=== PATIENT | female | born 1950 | race African-American/Black ===

== ENCOUNTER → 2018-07-21 | Outpatient (CLI) | payer BC ==
--- NOTE | 2018-07-21 13:40 | RAD ---
CT of the head without contrast, 07/21/2018: HISTORY: Dementia, memory loss There is mild cerebral atrophy. There are minimal bilateral deep white matter lucencies compatible with chronic ischemic change. The ventricles are within normal limits in size. There is no shift of the midline structures. There is no evidence of acute intracranial hemorrhage or mass effect. No abnormal extra-axial fluid collection or mass is seen. There is calcific plaquing of the distal internal carotid arteries. IMPRESSION: 1. Chronic findings as described above. 2. No acute intracranial abnormality is detected. PQRS Compliance Statement: One or more of the following individualized dose reduction techniques were utilized for this examination: 1. Automated exposure control 2. Adjustment of the mA and/or kV according to patient size 3. Use of iterative reconstruction technique Electronically signed by: Skyler Siegel MD (07/21/2018 1:36 PM) [facility]
== END | disposition home or self-care (01) ==
LOC: CT 13:07
PROVIDERS: ATTEND Psychiatry & Neurology Neurology
DX: G31.9 Degenerative disease of nervous system, unspecified (principal); R90.82 White matter disease, unspecified
CPT/HCPCS: 70450

== ENCOUNTER → 2018-07-28 | Outpatient (CLI) | payer BC ==
[2018-07-29 03:07] LABS: THYROXINE 8.6 ug/dL (4.5-12.0)
== END | disposition home or self-care (01) ==
LOC: LAB 12:49
PROVIDERS: ATTEND Psychiatry & Neurology Neurology
DX: F03.90 Unspecified dementia, unspecified severity, without behavioral disturbance, psychotic disturbance, mood disturbance, and anxiety (principal)
CPT/HCPCS: 36415; 82306; 82607; 84436; 84443; 84480; 86592

== ENCOUNTER 2021-09-21 08:14 | Observation (INO) | payer BC, MEDICARE ==
[~2021-09-21] VITALS: Ht 167.6 cm; Wt 68.8 kg
[2021-09-21] MEDS ORDERED: IV NORMAL SALINE 1,000ML 1,000 ML IV ONE (08:30)
--- NOTE | 2021-09-21 08:42 | PHYS DOC ---
General Adult EDM: Chief Complaint: BLOODY STOOL HPI: HPI: 71-year-old female presents with blood in her stool. The patient has dementia at baseline and her provides most of the history. He has noticed for a few days that she is walked around holding onto her abdomen but then denies any pain. She denies pain to me. Last night, the patient had dark-colored blood in her stool and had more this morning. Her states she has never had this before. She does take an 81 mg aspirin every day. She does not take NSAIDs daily. No recent changes in medications. Patient denies fever or chills. Review of Systems: Review of Systems: Constitutional: Denies fever or chills Eyes: Denies change in visual acuity HENT: Denies nasal congestion or sore throat Respiratory: Denies cough or shortness of breath Cardiovascular: Denies chest pain or edema GI: Blood in stool. Denies abdominal pain, nausea, vomiting. : Denies dysuria Musculoskeletal: Denies back pain or joint pain Integument: Denies rash Neurologic: Denies headache, focal weakness or sensory changes Endocrine: Denies polyuria or polydipsia Lymphatic: Denies swollen glands Psychiatric: Denies depression or anxiety Current Medications: Current Meds: Current Medications Medications (Trade) Dose Ordered Sig/Man Start Time Stop Time Status Last Admin Dose Admin Sodium Chloride 1,000 ml @ 1,000 mls/hr 1X ONCE 09/21/21 08:30 09/21/21 09:29 UNV Physical Exam: PE: Constitutional: Well developed, well nourished, no acute distress, non-toxic appearance. [] HENT: Normocephalic, atraumatic, bilateral external ears normal, oropharynx moist, no oral exudates, nose normal. [] Eyes: PERRLA, EOMI, conjunctiva normal, no discharge. [] Neck: Normal range of motion, no tenderness, supple, no stridor. [] Cardiovascular: Heart rate regular rhythm, no murmur [] Lungs & Thorax: Bilateral breath sounds clear to auscultation [] Abdomen: Bowel sounds normal, soft, no tenderness, no masses, no pulsatile masses. [] Skin: Warm, dry, no erythema, no rash. [] Back: No tenderness, no CVA tenderness. [] Extremities: No tenderness, no cyanosis, no clubbing, ROM intact, no edema. [] Neurologic: Alert and oriented X 3, normal motor function, normal sensory function, no focal deficits noted. [] Psychologic: Affect normal, judgement normal, mood anxious. [] EKG: EKG: [] Radiology/Procedures: Radiology/Procedures: [] Impressions: PQRS Compliance Statement: One or more of the following individualized dose reduction techniques were utilized for this examination: 1. Automated exposure control 2. Adjustment of the mA and/or kV according to patient size 3. Use of iterative reconstruction technique CT abdomen/pelvis with contrast 09/21/2021 10:00 AM INDICATION: Blood in stool COMPARISON: None available TECHNIQUE: Multiple axial CT images of the abdomen and pelvis were obtained after the intravenous administration of nonionic contrast. Coronal and sagittal reformats are provided. FINDINGS: Bibasilar subsegmental atelectasis. Heart size within normal limits. Evaluation degraded by motion artifact. Liver, spleen, adrenal glands and pancreas are normal in appearance. Gallbladder contains a calcified gallstone without adjacent inflammation. Abdominal aorta is normal in caliber with dense calcified atheromatous plaque. Small fat-containing bilateral inguinal hernias. Small fat-containing bilateral femoral hernias. No pathologically enlarged abdominal or pelvic lymph nodes. There is no free fluid or free intraperitoneal air. The kidneys enhance symmetrically. There is no suspicious renal mass. There is no hydronephrosis. There are no suspected calculi within the kidneys, ureters or urinary bladder. Mild to moderate diverticulosis without adjacent inflammation. Appendix is normal. Terminal ileum is normal in appearance. Small large bowel loops are normal in caliber. No bowel obstruction. Degree of motion limits evaluation for pericolonic inflammatory changes. Stomach is normal in appearance. Urinary bladder is within normal limits in degree of distention. No suspicious pelvic mass. There is a superior endplate compression deformity at L3 with 50% height loss and minimal retropulsion of superior endplate. Findings appear chronic although age indeterminate. IMPRESSION: 1. Mild/moderate colonic diverticulosis without definite adjacent inflammation. Evaluation is degraded by motion artifact. 2. Chronic appearing superior plate compression deformity at L3 with 50% height loss and minimal retropulsion of the superior endplate. Findings remain age indeterminate and correlation with point tenderness could be of benefit. 3. Small fat-containing bilateral inguinal and femoral hernias. 4. Cholelithiasis. 5. Bibasilar subsegmental atelectasis. Electronically signed by: Teodoro Vides MD (09/21/2021 10:37 AM) [id number] DICTATED AND SIGNED BY: TEODORO VIDES MD DATE: 09/21/21 1033 CC: MYRIAM THORNTON DO; DAVID MCLEOD MD ~MTH0 0 Heart Score: C/O Chest Pain: N/A Risk Factors: Risk Factors: DM, Current or recent (<one month) smoker, HTN, HLP, family history of CAD, obesity. Risk Scores: Score 0 - 3: 2.5% MACE over next 6 weeks - Discharge Home Score 4 - 6: 20.3% MACE over next 6 weeks - Admit for Clinical Observation Score 7 - 10: 72.7% MACE over next 6 weeks - Early Invasive Strategies Course & Med Decision Making: Course & Med Decision Making Pertinent Labs and Imaging studies reviewed. (See chart for details) The patient's labs are unremarkable. Her hemoglobin is within normal limits. I have given her 80 mg of Protonix IV. The the patient's CT is negative for acute findings. See official read for more details on chronic findings. I discussed with the patient discharge to home or admission for further observation and treatment. Her family would be most comfortable with admission. I spoke with Dr. Palmer about the patient and he has accepted her for admission. [] Bienvenido Disclaimer: Bienvenido Disclaimer: This electronic medical record was generated, in whole or in part, using a voice recognition dictation system. Departure Departure: Impression: Primary Impression: Blood in stool Referrals: DAVID MCLEOD MD (PCP) Scripts Hydralazine Hcl (HYDRALAZINE HCL) 25 Mg Tablet 1 TAB PO TID for blood pressure, #90 TAB 5 Refills Prov: DAVID MCLEOD MD 09/21/21 Amlodipine Besylate (AMLODIPINE BESYLATE) 10 Mg Tablet 10 MG PO DAILY for blood pressure for 30 Days, #30 TAB 2 Refills Prov: DAVID MCLEOD MD 09/21/21 MYRIAM THORNTON DO Sep 21, 2021 08:42
[2021-09-21] MEDS ORDERED: PANTOPRAZOLE IV 40 MG VIAL. IVP ONE (08:45)
[2021-09-21 09:40] LABS: BASO # 0.1 x10^3/uL (0.0-0.2); BASO % 1 % (0-3); EOS # 0.1 x10^3/uL (0.0-0.7); EOS % 2 % (0-3); HEMATOCRIT 39.1 % (36.0-47.0); HEMOGLOBIN 12.5 g/dL (12.0-15.5); LYMPH # 1.6 x10^3/uL (1.0-4.8); LYMPH % 36 % (24-48); MEAN CORPUSCULAR HEMOGLOBIN 29 pg (25-35); MEAN CORPUSCULAR HGB CONC 32 g/dL (31-37); MEAN CORPUSCULAR VOLUME 90 fL (79-100); MONO # 0.5 x10^3/uL (0.0-1.1); MONO % 11 % (0-9); NEUT # 2.2 x10^3uL (1.8-7.7); NEUT % 49 % (31-73); PLATELET COUNT 270 x10^3/uL (140-400); RED BLOOD COUNT 4.34 x10^6/uL (3.50-5.40); RED CELL DISTRIBUTION WIDTH 14.3 % (11.5-14.5); WHITE BLOOD COUNT 4.5 x10^3/uL (4.0-11.0)
[2021-09-21 09:46] LABS: CALCIUM 9.1 mg/dL (8.5-10.1); CREATININE 1.1 mg/dL (0.6-1.0); GFR 59.2; POTASSIUM 3.6 mmol/L (3.5-5.1)
[2021-09-21 09:52] LABS: ALBUMIN 3.9 g/dL (3.4-5.0); ALBUMIN/GLOBULIN RATIO 1.1 (1.0-1.7); TOTAL BILIRUBIN 0.4 mg/dL (0.2-1.0); TOTAL PROTEIN 7.4 g/dL (6.4-8.2)
[2021-09-21] MEDS ORDERED: IOHEXOL 300 MG/ML 75 ML VIAL. ONE (10:01)
[2021-09-21] MEDS ORDERED: IOHEXOL 300 MG/ML 75 ML VIAL. IV ONE (10:15)
--- NOTE | 2021-09-21 10:39 | RAD ---
PQRS Compliance Statement: One or more of the following individualized dose reduction techniques were utilized for this examinat ion: 1. Automated exposure control 2. Adjustment of the mA and/or kV according to patient size 3. Use of iterative reconstruction technique CT abdomen/pelvis with contrast 09/21/2021 10:00 AM INDICATION: Blood in stool COMPARISON: None available TECHNIQUE: Multiple axial CT images of the abdomen and pelvis were obtained after the intravenous adm inistration of nonionic contrast. Coronal and sagittal reformats are provided. FINDINGS: Bibasilar subsegmental atelectasis. Heart size within normal limits. Evaluation degraded by motion ar tifact. Liver, spleen, adrenal glands and pancreas are normal in appearance. Gallbladder contains a c alcified gallstone without adjacent inflammation. Abdominal aorta is normal in caliber with dense calcified atheromatous plaque. Small fat-containing b ilateral inguinal hernias. Small fat-containing bilateral femoral hernias. No pathologically enlarged abdominal or pelvic lymph nodes. There is no free fluid or free intraperitoneal air. The kidneys enhance symmetrically. There is no suspicious renal mass. There is no hydronephrosis. The re are no suspected calculi within the kidneys, ureters or urinary bladder. Mild to moderate diverticulosis without adjacent inflammation. Appendix is normal. Terminal ileum is normal in appearance. Small large bowel loops are normal in caliber. No bowel obstruction. Degree of motion limits evaluation for pericolonic inflammatory changes. Stomach is normal in appearance. Urinary bladder is within normal limits in degree of distention. No suspicious pelvic mass. There is a superior endplate compression deformity at L3 with 50% height loss and minimal retropulsion of supe rior endplate. Findings appear chronic although age indeterminate. IMPRESSION: 1. Mild/moderate colonic diverticulosis without definite adjacent inflammation. Evaluation is degrade d by motion artifact. 2. Chronic appearing superior plate compression deformity at L3 with 50% height loss and minimal retr opulsion of the superior endplate. Findings remain age indeterminate and correlation with point tende rness could be of benefit. 3. Small fat-containing bilateral inguinal and femoral hernias. 4. Cholelithiasis. 5. Bibasilar subsegmental atelectasis. Electronically signed by: Andressa Swan MD (09/21/2021 10:37 AM) [id number]
[2021-09-21 10:55] LABS: FECAL OB PT POSITIVE (NEG)
[2021-09-21] MEDS ORDERED: ACETAMINOPHEN 325 MG TABLET PO PRN (11:15)
[2021-09-21] MEDS ORDERED: DONE10TA7 PO (13:58)
[2021-09-21] MEDS ORDERED: MEMA10TA PO (13:58)
[2021-09-21] MEDS ORDERED: CALC1CAP8 PO (14:02)
[2021-09-21] MEDS ORDERED: QUET25TA3 PO (14:02)
[2021-09-21] MEDS ORDERED: MULT-445 PO (14:02)
[2021-09-21] MEDS ORDERED: ESCITALOPRAM OXA5 MG PO (14:02)
[2021-09-21] MEDS ORDERED: ASPI81TA59 PO (14:02)
[2021-09-21] MEDS ORDERED: METO50TA4 PO (14:02)
[2021-09-21 14:08] VITALS: BP 198/101
[2021-09-21] MEDS: amLODIPine BESYLATE 10 MG TABLET PO SCH (14:30)
--- NOTE | 2021-09-21 15:00 | NUR ---
PT ARRIVED TO UNIT VIA EMS. PT IS STABLE AT TIME ADMISSION. VS OBTAINED AND BP IS ELEVATED AND ORDERES RECIEVED FROM DR MCLEOD FOR 10MG AMLODAPINE X1. PT IS RESTLESS AND WANDERING OUT OF ROOM WITH NO PANTS ON AND VERY DISORGANIZED. PCT PLACED WITH PT FOR ELOPEMENT RISK. WILL CONTINUE TO [place].
[2021-09-21 16:37] VITALS: BP 240/92
[2021-09-21 16:49] VITALS: BP 184/123
[2021-09-21] MEDS ORDERED: HYDR-2868 PO (16:58)
[2021-09-21] MEDS ORDERED: AMLO-187 PO (16:58)
[2021-09-21] MEDS ORDERED: hydrALAZINE 25 MG TABLET PO SCH ×2 (17:00→21:00)
[2021-09-21] MEDS: LISINOPRIL 20 MG TABLET PO SCH (17:08)
[2021-09-21] MEDS: hydrALAZINE 25 MG TABLET PO SCH (17:08)
[2021-09-21 17:26] LABS: HEMATOCRIT 38.6 % (36.0-47.0); HEMOGLOBIN 12.3 g/dL (12.0-15.5)
[2021-09-21 17:51] VITALS: BP 194/87
[2021-09-21 18:29] VITALS: BP 145/84
[2021-09-21] MEDS: MEMANTINE 10 MG TABLET. PO SCH (20:53)
[2021-09-21] MEDS: DONEPEZIL HCL 10 MG TABLET PO SCH (20:53)
[2021-09-21] MEDS: QUEtiapine 25 MG TABLET. PO SCH (20:53)
[2021-09-22 05:00] VITALS: BP 160/84
[2021-09-22] MEDS: amLODIPine BESYLATE 10 MG TABLET PO SCH (07:45)
[2021-09-22] MEDS: DONEPEZIL HCL 10 MG TABLET PO SCH (07:45)
[2021-09-22] MEDS: QUEtiapine 25 MG TABLET. PO SCH (07:45)
[2021-09-22] MEDS: MEMANTINE 10 MG TABLET. PO SCH (07:45)
[2021-09-22] MEDS: LISINOPRIL 20 MG TABLET PO SCH (07:46)
[2021-09-22 07:56] VITALS: BP 160/84
[2021-09-22] MEDS: hydrALAZINE 25 MG TABLET PO SCH (07:56)
[2021-09-22] MEDS ORDERED: CITALOPRAM 10 MG TABLET. PO SCH (09:00)
[2021-09-22] MEDS ORDERED: ASPIRIN CHEWABLE 81 MG TABLET. PO SCH (09:00)
[2021-09-22] MEDS ORDERED: MULTIVITAMIN with MINERAL TABLET. PO SCH (09:00)
[2021-09-22] MEDS ORDERED: METOPROLOL SUCC 24HR ER 50 MG TAB.ER.24H. PO SCH (09:00)
[2021-09-22] MEDS ORDERED: CALCIUM CARB/VIT D3 500/200 TABLET PO SCH (09:00)
--- NOTE | 2021-09-22 09:22 | NUR ---
PT IS DISCHARGED HOME WITH . PT IS STABLE AT TIME OF DISCHARGE. AMLODAPINE 10MG DAILY AND HYDRALAZINE 25MG TID CALLED INTO [facility]. PT HAS NO IV AT DISCHARGE AND NO TELE MONITOR. AND AMBULATED OFF OF UNIT ACCOMPANIED BY STAFF. IS GIVEN ALL DISCHARGE AND FOLLOW UP INSTRUCTIONS. WILL CONTINUE TO MONITOR.
--- NOTE | 2021-09-29 18:52 | HP ---
DATE OF SERVICE: 09/29/2021 ADMIT DATE: 09/21/2021 HISTORY OF PRESENT ILLNESS: This is a 71-year-old female came in through the Emergency Room. Apparently, has severe dementia, Alzheimer type. Had blood in her stools. The patient notes that she walked around when having problems with abdominal discomfort. Her brought her in. The patient does not take NSAIDs and the patient had dark colored blood in her stool and more this morning. As a result of this, the patient was admitted for observation and further evaluation. The patient's hemoglobin remained basically stable from 12.5 to 12.3. PAST MEDICAL HISTORY: Includes neurological disorders; dementia, Alzheimer type; cardiac disorders; hypertension. She has had previous GI bleeds. Tetanus, influenza and COVID vaccinations are up to date. ALLERGIES: No known drug allergies. SOCIAL HISTORY: The patient denies smoking, alcohol or drug use. Most of history obtained from the . REVIEW OF SYSTEMS: As noted, came from the . The patient herself did not have much to say. PHYSICAL EXAMINATION: VITAL SIGNS: Blood pressure 160/84, respiratory rate 18, pulse 65, afebrile, 98% on room air. HEENT: The patient's head was atraumatic, normocephalic. Eyes: PERRLA without jaundice. Mouth and throat normal. Poor dentition. NECK: Supple. LUNGS: Clear. ABDOMEN: Soft, protuberant. The patient otherwise ____ was without mass. No hepatosplenomegaly. No rebounding, no guarding. Stool Hemoccult positive. EXTREMITIES: No clubbing, cyanosis, nor edema. NEUROLOGIC: Alert, but confused x 3. LABORATORY DATA: The patient's labs showed persistent hemoglobin 12.5 to 12.3, hematocrit 38. The patient's electrolytes are 145, 3.6. BUN and creatinine 16 and 1.1. Serology negative for SARS. The patient otherwise made good progress. During the rest her hospitalization, she remained basically stable in terms of vital signs and hemoglobin and as a result of this, the patient was discharged home to her . She will follow up accordingly with her head banquet waitress, Dr. Angulo and make further evaluation at that time. ASSESSMENT AND PLAN: Acute gastrointestinal bleed, probable hemorrhoids; severe dementia, Alzheimer type. Otherwise, the patient will continue to be monitored carefully. Instructions given to the and will return to the hospital, stay off all the aspirin, soft diet for now and make further evaluation once the results of GI consult has been finalized. KRISTEN/TARI/NANCY DR: KRISTEN/niurka TID: [id number]
== END 2021-09-22 09:15 | disposition home or self-care (01) ==
LOC: ER 08:14 → 1 SOUTH 11:02 → INTOOBSV 11:02
PROVIDERS: ADMIT Family Medicine; ATTEND Family Medicine
DX: K92.2 Gastrointestinal hemorrhage, unspecified (principal); Z20.822 Contact with and (suspected) exposure to COVID-19; G30.9 Alzheimer's disease, unspecified; F02.80 Dementia in other diseases classified elsewhere, unspecified severity, without behavioral disturbance, psychotic disturbance, mood disturbance, and anxiety; I10 Essential (primary) hypertension; J98.11 Atelectasis; K64.9 Unspecified hemorrhoids; K80.20 Calculus of gallbladder without cholecystitis without obstruction
CPT/HCPCS: 36415; 74177; 80053; 82274; 85014; 85018; 85025; 87426; 96361; 96374; 99285; C9113; G0378; J7030; Q9967; U0003; G0379

== ENCOUNTER 2022-02-24 21:02 | Emergency (ER) | payer MEDICARE ==
[~2022-02-24] VITALS: Ht 167.6 cm; Wt 62.0 kg
[~2022-02-24 21:02] MED LIST: AMLO-187 PO; ASPI81TA59 PO; CALC1CAP8 PO; DONE10TA7 PO; ESCITALOPRAM OXA5 MG PO; HYDR-2868 PO; MEMA10TA PO; METO50TA4 PO; MULT-445 PO; QUET25TA3 PO
--- NOTE | 2022-02-24 21:56 | PHYS DOC ---
Past History Additional Past Medical Histor: alzheimers Past Surgical History: No Surgical History Alcohol Use: Sober General Adult EDM: Chief Complaint: MECHANICAL FALL HPI: HPI: ".. I fell..." Patient is a 71 year old female who presents with above hx and complaints of fall into glass table . Has 16 cm laceration to the bone on chin. No loss of consciousness. Patient does have active bleeding from laceration site. Patient has past medical history of Alzheimer's and gait disability. Patient's has history of cardiac disorders hypertension, GI bleed, arthritis, patient normally follows Dr. Mcleod. Patient currently appears to have a good bite. advises that her Alzheimer's has become quite advanced. Patient's did see the fall. No loss of conscious noted. Review of Systems: Review of Systems: Constitutional: Denies fever or chills Eyes: Denies change in visual acuity HENT: Complains of head injury with large laceration to the bone on chin. Respiratory: Denies cough or shortness of breath Cardiovascular: Denies chest pain or edema GI: Denies abdominal pain, nausea, vomiting, bloody stools or diarrhea : Denies dysuria Musculoskeletal: Denies back pain or joint pain Integument: Denies rash Neurologic: Denies headache, focal weakness or sensory changes Endocrine: Denies polyuria or polydipsia Lymphatic: Denies swollen glands Psychiatric: Denies depression or anxiety Family History: Family History: Noncontributory Current Medications: Current Meds: See nursing for home meds Allergies: Allergies: Allergies Coded Allergies Type Severity Reaction Last Updated Verified No Known Drug Allergies 09/21/21 No Physical Exam: PE: Constitutional: in acute emotional distress, non-toxic appearance. [] HENT: Normocephalic, large laceration to chin, bilateral external ears normal, oropharynx moist, no oral exudates, nose normal. TMs clear Eyes: PERRLA, EOMI, conjunctiva normal, no discharge. [] Neck: Normal range of motion, mild upper neck tenderness, supple, no stridor. [] Cardiovascular:Heart rate regular rhythm, no murmur PMI to the left Lungs & Thorax: Bilateral breath sounds clear to auscultation [] Abdomen: Bowel sounds normal, soft, no tenderness, no masses, no pulsatile masses. Scar Skin: Warm, dry, no erythema, no rash. Poor turgor Back: No tenderness, no CVA tenderness. [] Extremities: No tenderness, no cyanosis, no clubbing, ROM intact, no edema. 3D changes. Shuffling gait. Neurologic: Alert and oriented x2, moves all extremities on request does have distal sensory, obvious advanced dementia., no new focal deficits noted per . Psychologic: Affect extremely anxious, judgement compromised, mood depressed. EKG: EKG: [] Radiology/Procedures: Radiology/Procedures: [[address] [id number] IMAGING REPORT Signed PATIENT: SILVANO BRITTON: [id number] : 1950 LOCATION: ER AGE: 71 SEX: F EXAM STATUS: REG ER ORD. PHYSICIAN: JUWAN ALBA MD REASON: Fall, face plant, laceration to chin PROCEDURE: CT MAXILLOFACIAL WO CONTRAST CT scan of the facial bones without contrast 02/24/2022 Clinical history: Fall with facial injury. Laceration to chin. Technique: Unenhanced, contiguous, 0.625 mm axial sections were obtained through the facial bones and orbits. 3 mm reconstructed sagittal, axial and coronal images were obtained. One or more of the following individualized dose reduction techniques were utilized for this study: 1. Automated exposure control. 2. Adjustment of the mA and/or kV according to patient size. 3. Use of iterative reconstruction technique. Findings: Soft tissue swelling and defect is seen within the soft tissues anterior to the mandible consistent with patient's history of a laceration. No facial bone fracture is seen. Both orbits are intact. The paranasal sinuses are essentially clear. No air-fluid level is noted. Impression: No facial bone or orbital fracture is seen. Electronically signed by: Aguilar Rogers MD (02/25/2022 12:08 AM) [id number] DICTATED AND SIGNED BY: AGUILAR ROGERS MD DATE: 02/25/22 0005 CC: DAVID MCLEOD MD; JUWAN ALBA MD ~ ]Signed PATIENT: SILVANO BRITTON: [id number] : 1950 LOCATION: ER AGE: 71 SEX: F EXAM STATUS: REG ER ORD. PHYSICIAN: JUWAN ALBA MD REASON: Fall, headache and neck pain PROCEDURE: CT HEAD AND CERVICAL SPINE WO CT scan of the head without contrast 02/24/2022 Clinical History: Fall with head injury. Head pain. Technique: Unenhanced, contiguous, 5 mm axial sections were obtained through the head. One or more of the following individualized dose reduction techniques were utilized for this study: 1. Automated exposure control. 2. Adjustment of the mA and/or kV according to patient size. 3. Use of iterative reconstruction technique. Findings: There is generalized parenchymal atrophy. Areas of decreased attenuation are seen within the periventricular and subcortical white matter of both cerebral hemispheres consistent with areas of small vessel ischemic disease. No acute parenchymal abnormality is seen. No extra-axial fluid collection is noted. No skull fracture is seen. Impression: No acute intracranial abnormality is seen. CT scan of the cervical spine without contrast 02/24/2022 Clinical history: Neck pain post fall. Technique: Unenhanced, contiguous, 0.625 mm axial sections were obtained through the cervical spine. 2 mm reconstructed axial and 2 mm coronal and sagittal reconstructed images were obtained. One or more of the following individualized dose reduction techniques were utilized for this study: 1. Automated exposure control. 2. Adjustment of the mA and/or kV according to patient size. 3. Use of iterative reconstruction technique. Findings: Sagittal coronal reconstructed images demonstrate straightening of the normal cervical lordosis. Degenerative changes consisting of disc space narrowing, vertebral endplate sclerosis and mild to moderate anterior vertebral body osteophyte formation are seen involving the lower cervical disc spaces. Mild to moderate atherosclerotic calcification is seen in the region carotid bifurcations. No fracture or subluxation of the cervical vertebrae seen. Degenerative changes are seen involving the uncovertebral and facet joints throughout the cervical disc spaces. Impression: No fracture or subluxation of the cervical vertebra is identified. Electronically signed by: Aguilar Rogers MD (02/25/2022 12:05 AM) [id number] DICTATED AND SIGNED BY: AGUILAR ROGERS MD DATE: 02/24/22 8253 CC: DAVID MCLEOD MD; JUWAN ALBA MD ~ Heart Score: C/O Chest Pain: N/A Risk Factors: Risk Factors: DM, Current or recent (<one month) smoker, HTN, HLP, family history of CAD, obesity. Risk Scores: Score 0 - 3: 2.5% MACE over next 6 weeks - Discharge Home Score 4 - 6: 20.3% MACE over next 6 weeks - Admit for Clinical Observation Score 7 - 10: 72.7% MACE over next 6 weeks - Early Invasive Strategies Course & Med Decision Making: Course & Med Decision Making Pertinent Labs and Imaging studies reviewed. (See chart for details) Procedure note-laceration repair-goal reduce amount of scarring. Patient laceration cleaned with saline. Betadine to edge of wound. Injected edge of la ceration with lidocaine 2% and then Sensorcaine. Irrigated laceration extensively with normal saline under pressure. Placed 12 internal sutures of 3- 0 Vicryl. Simple. Replaced 6 simple Prolene sutures 4-0. Then 12 running sutures of 4-0 prolene. Patient to use Polysporin 4 times a day monitor for infection. Blue sutures out in 10 days. Follow-up primary care. Monitor for a cute mental status change. Return if any concerns. Impression: 1. Laceration- 16 cm to chin 2. Head injury 3. Advanced Alzheimer's [] Bienvenido Disclaimer: Bienvenido Disclaimer: This electronic medical record was generated, in whole or in part, using a voice recognition dictation system. Departure Departure: Referrals: DAVID MCLEOD MD (PCP) Bienvenido Disclaimer This chart was dictated in whole or in part using Voice Recognition software in a busy, high-work load, and often noisy Emergency Department environment. It may contain unintended and wholly unrecognized errors or omissions. JUWAN ALBA MD February 24, 2022 21:56
[2022-02-24] MEDS ORDERED: DIPHTH,PERTUSS(ACELL),TET TOX 0.5 ML DISP.SYRIN. VAX IM ONE (22:30)
[2022-02-24] MEDS ORDERED: LIDOCAINE 2% 20 ML VIAL. IJ ONE (22:30)
[2022-02-24] MEDS ORDERED: BUPIVACAINE MPF 0.5% 30 ML VIAL. IJ ONE (22:30)
[2022-02-24] MEDS ORDERED: MUPIROCIN 2% TOPICAL OINTMENT 22GM TUBE. TP SCH (22:59)
--- NOTE | 2022-02-25 00:07 | RAD ---
CT scan of the head without contrast 02/24/2022 Clinical History: Fall with head injury. Head pain. Technique: Unenhanced, contiguous, 5 mm axial sections were obtained through the head. One or more of the following individualized dose reduction techniques were utilized for this study: 1. Automated exposure control. 2. Adjustment of the mA and/or kV according to patient size. 3. Use of iterative reconstruction technique. Findings: There is generalized parenchymal atrophy. Areas of decreased attenuation are seen within t he periventricular and subcortical white matter of both cerebral hemispheres consistent with areas of small vessel ischemic disease. No acute parenchymal abnormality is seen. No extra-axial fluid collec tion is noted. No skull fracture is seen. Impression: No acute intracranial abnormality is seen. CT scan of the cervical spine without contrast 02/24/2022 Clinical history: Neck pain post fall. Technique: Unenhanced, contiguous, 0.625 mm axial sections were obtained through the cervical spine. 2 mm reconstructed axial and 2 mm coronal and sagittal reconstructed images were obtained. One or more of the following individualized dose reduction techniques were utilized for this study: 1. Automated exposure control. 2. Adjustment of the mA and/or kV according to patient size. 3. Use of iterative reconstruction technique. Findings: Sagittal coronal reconstructed images demonstrate straightening of the normal cervical lord osis. Degenerative changes consisting of disc space narrowing, vertebral endplate sclerosis and mild to moderate anterior vertebral body osteophyte formation are seen involving the lower cervical disc s paces. Mild to moderate atherosclerotic calcification is seen in the region carotid bifurcations. No fracture or subluxation of the cervical vertebrae seen. Degenerative changes are seen involving th e uncovertebral and facet joints throughout the cervical disc spaces. Impression: No fracture or subluxation of the cervical vertebra is identified. Electronically signed by: Aguilar Rogers MD (02/25/2022 12:05 AM) [id number]
--- NOTE | 2022-02-25 00:11 | RAD ---
CT scan of the facial bones without contrast 02/24/2022 Clinical history: Fall with facial injury. Laceration to chin. Technique: Unenhanced, contiguous, 0.625 mm axial sections were obtained through the facial bones and orbits. 3 mm reconstructed sagittal, axial and coronal images were obtained. One or more of the following individualized dose reduction techniques were utilized for this study: 1. Automated exposure control. 2. Adjustment of the mA and/or kV according to patient size. 3. Use of iterative reconstruction technique. Findings: Soft tissue swelling and defect is seen within the soft tissues anterior to the mandible co nsistent with patient's history of a laceration. No facial bone fracture is seen. Both orbits are int act. The paranasal sinuses are essentially clear. No air-fluid level is noted. Impression: No facial bone or orbital fracture is seen. Electronically signed by: Aguilar Rogers MD (02/25/2022 12:08 AM) [id number]
[2022-02-25 01:15] VITALS: BP 146/88
[2022-02-25] MEDS ORDERED: CEPH500C PO (03:55)
--- NOTE | 2022-02-25 04:05 | RAD ---
XR CHEST 1V Clinical Indication: Reason: Fall, chest soreness / Spl. Instructions: / History: Comparison: None. Findings: The cardiomediastinal silhouette is normal. Lungs are clear. There is no pneumothorax. No pleural eff usion is appreciated. No acute bone abnormality. IMPRESSION: No acute cardiopulmonary process. Electronically signed by: Boo Shook MD (02/25/2022 4:03 AM) [facility]
== END 2022-02-25 01:28 | disposition home or self-care (01) ==
LOC: ER 21:02
DX: S01.81XA Laceration without foreign body of other part of head, initial encounter (principal); G30.9 Alzheimer's disease, unspecified; I10 Essential (primary) hypertension; M19.90 Unspecified osteoarthritis, unspecified site; W18.02XA Striking against glass with subsequent fall, initial encounter; Y93.89 Activity, other specified; Y92.89 Other specified places as the place of occurrence of the external cause; Y99.8 Other external cause status
CPT/HCPCS: 12016; 70450; 70486; 71045; 72125; 90471; 90715; 99284; J2001; J3490

== ENCOUNTER 2022-02-25 02:52 | Emergency (ER) | payer MEDICARE ==
[~2022-02-25] VITALS: Ht 167.6 cm; Wt 62.0 kg
--- NOTE | 2022-02-25 02:56 | PHYS DOC ---
Past History Additional Past Medical Histor: alzheimers Past Surgical History: No Surgical History Alcohol Use: None General Adult HPI: HPI: " We just gone home .. and pulled out almost all of sutures... " Patient is a 71 year old female who presents with above hx and complaints. Pt. seen earlier for repair of laceration. Pt. has hx of advanced Alzheimer's disease. Since patient has been discharged has been picking at the laceration sutures. Has managed to pull out her continuous suture as well as half of the simple sutures on the exterior. Interior sutures are still holding the laceration closed, however there has been some increased bleeding from the picking. See prior record to night. Review of Systems: Review of Systems: Constitutional: Denies fever or chills Eyes: Denies change in visual acuity HENT: Denies nasal congestion or sore throat . Complains of reopened laceration on chin Respiratory: Denies cough or shortness of breath Cardiovascular: Denies chest pain or edema GI: Denies abdominal pain, nausea, vomiting, bloody stools or diarrhea : Denies dysuria Musculoskeletal: Denies back pain or joint pain Integument: Denies rash Neurologic: Denies headache, focal weakness or sensory changes Endocrine: Denies polyuria or polydipsia Lymphatic: Denies swollen glands Psychiatric: Denies depression or anxiety Family History: Family History: Noncontributory to presentation Current Medications: Current Meds: See nursing for home meds Allergies: Allergies: Allergies Coded Allergies Type Severity Reaction Last Updated Verified No Known Drug Allergies 09/21/21 No Physical Exam: PE: Constitutional: no acute distress, non-toxic appearance. [] HENT: Normocephalic, minimal contusion hematoma and laceration which has been re opened, bilateral external ears normal, oropharynx moist, no oral exudates, nose normal. [] Eyes: PERRLA, EOMI, conjunctiva normal, no discharge. [] Neck: Normal range of motion, no tenderness, supple, no stridor. [] Cardiovascular:Heart rate regular rhythm, no murmur [] Lungs & Thorax: Bilateral breath sounds equal apex on auscultation [] Abdomen: Bowel sounds normal, soft, no tenderness, no masses, no pulsatile masses. [] Skin: Warm, dry, no erythema, no rash. [] Back: No tenderness, no CVA tenderness. [] Extremities: No tenderness, no cyanosis, no clubbing, ROM intact, no edema. Arthritis. Shuffling gait. Neurologic: Alert and oriented X 3, normal motor function, normal sensory function, no focal deficits noted. [] Psychologic: Affect anxious judgement obviously impaired, mood depressed. EKG: EKG: [] Radiology/Procedures: Radiology/Procedures: See prior ED work-up [] Heart Score: C/O Chest Pain: N/A Risk Factors: Risk Factors: DM, Current or recent (<one month) smoker, HTN, HLP, family history of CAD, obesity. Risk Scores: Score 0 - 3: 2.5% MACE over next 6 weeks - Discharge Home Score 4 - 6: 20.3% MACE over next 6 weeks - Admit for Clinical Observation Score 7 - 10: 72.7% MACE over next 6 weeks - Early Invasive Strategies Course & Med Decision Making: Course & Med Decision Making Pertinent Labs and Imaging studies reviewed. (See chart for details) Keep laceration covered with OpSite. We will have patient wear mittens for the next 10 days. Avoid picking at laceration. . Follow-up primary care. Return if any concerns. Will not be able to re-suture laceration after this date will have to heal by secondary intent. Will cover with Keflex 500 tid x 5 days because re-opened suture. Impression: 1. Replace Sutures Pt. had removed from prior visit. 16 cm lac. 2. History of Alzheimer's. 3. History of trip and fall 4. Trip and Fall 5. Head Injury [] Dragon Disclaimer: Dragon Disclaimer: This electronic medical record was generated, in whole or in part, using a voice recognition dictation system. Departure Departure: Referrals: DAVID MCLEOD MD (PCP) Scripts Cephalexin (KEFLEX) 500 Mg Capsule 1 CAP PO TID for laceration for 5 Days, #15 CAP Prov: JUWAN ALBA MD 02/25/22 [place] Disclaimer This chart was dictated in whole or in part using Voice Recognition software in a busy, high-work load, and often noisy Emergency Department environment. It may contain unintended and wholly unrecognized errors or omissions. JUWAN ALBA MD February 25, 2022 02:56
[2022-02-25] MEDS ORDERED: BUPIVACAINE MPF 0.5% 30 ML VIAL. IJ ONE (03:00)
[2022-02-25] MEDS ORDERED: LIDOCAINE 2% 20 ML VIAL. IJ ONE (03:00)
[2022-02-25] MEDS ORDERED: BACITRACIN ZINC TOPICAL OINT PACKET. TP ONE (03:45)
[2022-02-25] MEDS ORDERED: cefTRIAXone IM 1 GM VIAL IM ONE ×2 (03:48→04:00)
[2022-02-25] MEDS ORDERED: CEPH500C PO (03:55)
[2022-02-25 04:35] VITALS: BP 142/82
== END 2022-02-25 04:39 | disposition home or self-care (01) ==
LOC: ER 02:52
DX: S01.81XD Laceration without foreign body of other part of head, subsequent encounter (principal); G30.9 Alzheimer's disease, unspecified; W01.0XXD Fall on same level from slipping, tripping and stumbling without subsequent striking against object, subsequent encounter
CPT/HCPCS: 96372; 99283; J0696; J2001; J2060; J3490; 99284